=== PATIENT | female | born 1945 | race Asian ===

== ENCOUNTER → 2018-06-27 | Outpatient (CLI) | payer MEDICARE | END | disposition home or self-care (01) | LOC: RAD 17:38 | PROVIDERS: ATTEND Family Medicine | DX: R60.9 Edema, unspecified (principal); M79.605 Pain in left leg ==

== ENCOUNTER 2019-10-16 16:52 | Emergency (ER) | payer MEDICARE, OTHER ==
[~2019-10-16] VITALS: Ht 162.6 cm; Wt 63.8 kg
--- NOTE | 2019-10-16 17:04 | NUR ---
PT WHEELED TO ROOM, RESPIRATIONS EVEN AND UNLABORED, NO OBVIOUS SIGNS OF DISTRESS.
--- NOTE | 2019-10-16 17:25 | NUR ---
THIS PT WAS BIB BY HER DAUGHTER TODAY BECAUSE THE PT HAS NOT BEEN EATING AND HAS N/V STARTING MONDAY. PT WAS STARTED ON A NEW DM MEDICATION ON MONDAY, SHE HAD ONE DOSE AND HAD N/V. TODAY THE PT ATE TOAST FOR BREAKFAST AND JELLO AT LUNCH, SHE THREW UP ONCE TODAY. PT DENIES ANY SYMPTOMS AT THIS TIME, NO COMPLAINTS. THE DAUGHTER IS THE MAIN HISTORIAN, THE PT SPEAKS PANAMANIAN, BUT THE DAUGHTER REPEATS THE QUESION TO THE PT AND THE PT ANSWERS THE DAUGHTER.
--- NOTE | 2019-10-16 17:25 | NUR ---
ERP TO BEDSIDE.
--- NOTE | 2019-10-16 18:03 | NUR ---
PT SITTING IN BED, DAUGHTER SITTING IN BED NEXT TO HER. NO SIGNS OF DISTRESS, RESPIRATIONS EVEN AND UNLABORED, NO COMPLAINTS, WILL CONTINUE TO MONITOR.
--- NOTE | 2019-10-16 18:49 | NUR ---
PT SITTING UP IN CHAIR, MONITORS IN PLACE, DAUGHTER AT HER SIDE, CALL LIGHT WITHIN REACH
[2019-10-16] MEDS ORDERED: ONDANSETRON 2MG/ML, 2ML ONE (18:51)
--- NOTE | 2019-10-16 18:54 | NUR ---
bedside report to Crystal ALANIZ. orders have been placed by erp
[2019-10-16] MEDS ORDERED: SODIUM CHLORIDE 0.9% 1,000ML IVBOLUS ONE ×2 (19:00→21:00)
[2019-10-16] MEDS ORDERED: SODIUM CHLORIDE FLUSH 10ML SYR IVF ONE (19:00)
[2019-10-16] MEDS ORDERED: ONDANSETRON 2MG/ML, 2ML IVPush ONE (19:00)
--- NOTE | 2019-10-16 19:13 | NUR ---
IV SITE STARTED, LABS DRAWN, PT MEDICATED PER MAR, IV FLUIDS INFUSING. AWAITING XRAY
[2019-10-16 19:27] LABS: MEAN CORPUSCULAR HEMOGLOBIN 22.2 pg (27.0-34.8); MEAN CORPUSCULAR HGB CONC 30.6 g/dL (32.4-35.8); MEAN CORPUSCULAR VOLUME 72.6 fL (80-100); MEAN PLATELET VOLUME 7.5 fL (7.4-10.4); PLATELET COUNT 385 x10^3/uL (130-400); RED BLOOD COUNT 5.12 x10^6/uL (3.82-5.3); RED CELL DISTRIBUTION WIDTH 17.2 % (9.6-15.2)
--- NOTE | 2019-10-16 19:27 | NUR ---
PT UP TO RR WITH STANDBY ASSIST, TOLERATED TRANSFER WITHOUT DIFFICULTY
[2019-10-16 19:35] LABS: ALANINE AMINOTRANSFERASE 41 U/L (12-78); ALBUMIN 3.8 g/dL (3.4-5.0); ANION GAP 7 mmol/L (5-15); CALCIUM 9.3 mg/dL (8.5-10.1); CHLORIDE 90 mmol/L (98-107); CREATININE 0.97 mg/dL (0.55-1.02)
[2019-10-16 19:37] LABS: ALKALINE PHOSPHATASE 99 U/L (45-117); BILIRUBIN,TOTAL 0.7 mg/dL (0.2-1.0); TOTAL PROTEIN 8.1 g/dL (6.4-8.2)
[2019-10-16] MEDS ORDERED: ALEN70TA3 PO (20:08)
[2019-10-16] MEDS ORDERED: HYDR12.517 PO (20:08)
[2019-10-16] MEDS ORDERED: LISI40TA PO (20:08)
[2019-10-16] MEDS ORDERED: MAGN400T9 PO (20:08)
[2019-10-16] MEDS ORDERED: FEXO180T15 PO (20:08)
[2019-10-16] MEDS ORDERED: INSU100V8 SQ (20:08)
[2019-10-16] MEDS ORDERED: ASPI-496 PO (20:08)
[2019-10-16] MEDS ORDERED: ATOR40TA78 PO (20:08)
[2019-10-16] MEDS ORDERED: ERGO400T3 PO (20:09)
[2019-10-16] MEDS ORDERED: GABA-827 PO (20:09)
--- NOTE | 2019-10-16 20:10 | NUR ---
PT RESTING ON [employer], MONITORS IN PLACE, SIDERAILS UP X2, CALL LIGHT WITHIN REACH. AWAITING LAB RESULTS
[2019-10-16 20:15] LABS: BASOPHILS # (AUTO) 0.01 x10^3/uL (0-0.1); BASOPHILS % (AUTO) 0 % (0-1); EOSINOPHILS # (AUTO) 0.09 x10^3/uL (0-0.4); EOSINOPHILS % (AUTO) 1 % (1-7); LYMPHOCYTES # (AUTO) 1.35 x10^3/uL (1-3.4); LYMPHOCYTES % (AUTO) 20 % (22-44); MD MORPH REVIEW ONLY; MONOCYTES % (AUTO) 2 % (2-9); NEUTROPHILS # (AUTO) 5.19 x10^3/uL (1.8-6.8); NEUTROPHILS % (AUTO) 77 % (42-75)
[2019-10-16 20:18] LABS: HYPOCHROMIA 1+; MICROCYTOSIS 1+
[2019-10-16 20:19] LABS: ANISOCYTOSIS 1+
[2019-10-16 20:21] LABS: <PLATELET ESTIMATE> ADEQUATE; <PLT MORPHOLOGY> NORMAL PLT MORPH; PMNS WITH VACUOLES 1+
--- NOTE | 2019-10-16 20:38 | NUR ---
PT UP TO RR WITH STANDBY ASSIST, TOLERATED TRANSFER WITHOUT DIFFICULTY
[2019-10-16 21:03] VITALS: BP 136/89
--- NOTE | 2019-10-16 21:03 | NUR ---
PT RESTING ON GURNEY, IV FLUIDS INFUSING, MONITORS IN PLACE, SIDERAILS UP X2, CALL LIGHT WITHIN REACH
--- NOTE | 2019-10-16 21:40 | NUR ---
provided pt with crackers and po fluids
--- NOTE | 2019-10-16 21:55 | NUR ---
PT TOLERATING PO INTKE, REQUESTING TO BE D/C HOME
== END 2019-10-16 22:05 | disposition home or self-care (01) ==
LOC: ED 17:43
DX: R11.2 Nausea with vomiting, unspecified (principal); E87.1 Hypo-osmolality and hyponatremia; K59.00 Constipation, unspecified; E11.9 Type 2 diabetes mellitus without complications
CPT/HCPCS: 36415; 74021; 80053; 85025; 93005; 96361; 96374; 99285; J2405; J7030

== ENCOUNTER 2020-05-15 11:32 | Emergency (ER) | payer MEDICARE, OTHER ==
[~2020-05-15] VITALS: Ht 157.5 cm; Wt 52.2 kg
[~2020-05-15 11:32] MED LIST: ALEN70TA3 PO; ASPI-496 PO; ATOR40TA78 PO; ERGO400T3 PO; FEXO180T15 PO; GABA-827 PO; HYDR12.517 PO; INSU100V8 SQ; LISI40TA PO; MAGN400T9 PO
[2020-05-15 12:33] LABS: BASOPHILS % (AUTO) 1 % (0-1); EOSINOPHILS % (AUTO) 1 % (1-7); LYMPHOCYTES % (AUTO) 20 % (22-44); MEAN CORPUSCULAR HEMOGLOBIN 22.5 pg (27.0-34.8); MEAN CORPUSCULAR HGB CONC 31.2 g/dL (32.4-35.8); MEAN PLATELET VOLUME 7.2 fL (7.4-10.4); MONOCYTES % (AUTO) 8 % (2-9); NEUTROPHILS % (AUTO) 69 % (42-75); PLATELET COUNT 365 x10^3/uL (130-400); RED BLOOD COUNT 5.11 x10^6/uL (3.82-5.3); RED CELL DISTRIBUTION WIDTH 18.3 % (9.6-15.2)
[2020-05-15 12:41] LABS: ALANINE AMINOTRANSFERASE 27 U/L (12-78); ANION GAP 7 mmol/L (5-15); CALCIUM 9.2 mg/dL (8.5-10.1); CHLORIDE 98 mmol/L (98-107); CREATININE 1.24 mg/dL (0.55-1.02)
[2020-05-15 12:42] LABS: MD NO
[2020-05-15 12:45] LABS: ALKALINE PHOSPHATASE 77 U/L (45-117); BILIRUBIN,TOTAL 0.7 mg/dL (0.2-1.0); TOTAL PROTEIN 8.3 g/dL (6.4-8.2)
--- NOTE | 2020-05-15 12:54 | NUR ---
TASK RN: PT RESTING IN PEDRO [place] NOTED. DAUGHTER AT BEDSIDE. PT/DAUGHTER REPORT INTERMITTENT CHEST PALPITATIONS WHICH OCCURS IMMEDIATELY AFTER TAKING DM ORAL PO ONCE A WEEK. S/S LAST APPROX 3-5 MINUTES AND ARE ASSOCIATED WITH NAUSEA AND DIZZINESS. PT TAKES DAILY ASA, LAST THIS AM BP/SPO2/ECG MONITORING IN PLACE. NSR ON MONITOR. PT/DAUGHTER UPDATED TO POC (RESULTS/RECHECK) AND DEMONSTRATES UNDERSTANDING.
--- NOTE | 2020-05-15 13:05 | NUR ---
TASK RN: ERP AWARE OF ELEVATED TROP. PT TAKES ASA QAM, LAST INTAKE THIS AM. NO ORDERS RECEIVED.
--- NOTE | 2020-05-15 13:12 | NUR ---
REPORT TAKEN FROM KATTY SALGADO. PT RESTING ON GURNEY, A&O, RESPS EVEN AND UNLABORED. NSR ON SIGNAL OPERATOR LINGUIST WITH NO ECTOPY NOTED. ALL RESULTS BACK, CHART UP FOR RECHECK. AWAITING MD AND DISPO AT THIS TIME.
--- NOTE | 2020-05-15 16:11 | NUR ---
THIS FLOAT RN AT BEDSIDE TO DC PT FOR PRIMARY RN, FRANSISCO. PT AND FAMILY VERBALIZED UNDERSTANDING TO DC INSTRUCTIONS. AMBULATORY TO CHECKOUT C STEADY GAIT. VSS
[2020-05-15 16:12] VITALS: BP 123/65
== END 2020-05-15 16:14 | disposition home or self-care (01) ==
LOC: ED 12:11
DX: R00.2 Palpitations (principal); T50.995A Adverse effect of other drugs, medicaments and biological substances, initial encounter; R11.0 Nausea; E11.649 Type 2 diabetes mellitus with hypoglycemia without coma; R94.31 Abnormal electrocardiogram [ECG] [EKG]; Y92.9 Unspecified place or not applicable
CPT/HCPCS: 36415; 71045; 80053; 83880; 84484; 85025; 93005; 99285